=== PATIENT | female | born 1985 | race Caucasian/White ===

== ENCOUNTER 2019-09-19 05:08 | Emergency (ER) | payer SELFPAY ==
--- OUTSIDE RECORDS SUMMARY | 2019-09-19 05:10 | XMS REPORT ---
:1985 [facility] Address [address] [place] [address] Dr. Mcduffie [address] [place] [id number] Care Team Providers Name Role Phone Unavailable Unavailable Unavailable Problems This patient has no known problems. Allergies, Adverse Reactions, Alerts This patient has no known allergies or adverse reactions. Medications This patient has no known medications.
--- NOTE | 2019-09-19 05:23 | ER ---
Nurse's Notes [facility] Name: Tori Espinoza Age: 34 yrs Sex: Female : 1985 Arrival Date: 09/19/2019 Time: 05:11 Bed 15 Private MD: Diagnosis: Allergic contact dermatitis-Poison Nasreen Presentation: 09/18 05:13 Chief complaint: Patient states: I have rashes all over my body started yesterday. 2 rr5 days ago I do yard work then it started this rashes. denies . 05:13 Coronavirus screen: Patient denies fever greater than 100.4F, cough, shortness of rr5 breath, or difficulty breathing. Proceed with normal triage process. Onset of symptoms was September 18, 2019. 05:13 Method Of Arrival: Ambulatory rr5 05:13 Acuity: RICHARD 4 rr5 05:14 Ebola Screen: No symptoms or risks identified at this time. Initial Sepsis Screen: Does mg2 the patient meet any 2 criteria? No. Patient's initial sepsis screen is negative. Does the patient have a suspected source of infection? No. Patient's initial sepsis screen is negative. Risk Assessment: Do you want to hurt yourself or someone else? Patient reports no desire to harm self or others. 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 - Social history:: Smoking status: unknown Patient uses alcohol, occasionally. Patient/guardian denies using street drugs. - Family history:: not pertinent. - Hospitalizations: : No recent hospitalization is reported. Screenin:14 Abuse screen: Denies threats or abuse. Denies injuries from another. Nutritional mg2 screening: No deficits noted. Tuberculosis screening: No symptoms or risk factors identified. Fall Risk None identified. Assessment: 05:13 General: Appears in no apparent distress. uncomfortable, Behavior is calm, cooperative, rr5 appropriate for age. 05:13 Pain: Denies pain. Neuro: Level of Consciousness is awake, alert, obeys commands, rr5 Oriented to person, place, time, situation. Cardiovascular: Capillary refill < 3 seconds Patient's skin is warm and dry. Respiratory: Airway is patent Respiratory effort is even, unlabored, Respiratory pattern is regular, symmetrical, Denies shortness of breath. GI: No signs and/or symptoms were reported involving the gastrointestinal system. : No signs and/or symptoms were reported regarding the genitourinary system. EENT: No signs and/or symptoms were reported regarding the EENT system. Derm: Rash noted that is red, raised, urticaria, on chest, right arm, left arm and neck Reports itching. Musculoskeletal: Circulation, motion, and sensation intact. Capillary refill < 3 seconds. Vital Signs: 05:13 BP 132 / 89; Pulse 79; Resp 18; Temp 97.7(TE); Pulse Ox 100% on R/A; mg2 05:13 Weight 104.33 kg; Height 5 ft. 11 in. (180.34 cm); Pain 0/10; rr5 05:40 BP 113 / 75; Pulse 70; Resp 17; Pulse Ox 98% on R/A; rr5 05:13 Body Mass Index 32.08 (104.33 kg, 180.34 cm) rr5 ED Course: 05:11 Patient arrived in ED. ag3 05:11 Maykel Lee, RN is Primary Nurse. rr5 05:13 Irving Brower MD is Attending Physician. rn 05:13 Arm band placed on. mg2 05:14 Patient has correct armband on for positive identification. Bed in low position. rr5 05:20 Triage completed. rr5 05:30 No provider procedures requiring assistance completed. Patient did not have IV access rr5 during this emergency room visit. Administered Medications: 05:23 Drug: SOLU-Medrol 125 mg Route: IM; Site: left gluteus; mg2 05:43 Follow up: Response: No adverse reaction rr5 Outcome: 05:22 Discharge ordered by . rn 05:41 Discharged to home ambulatory. rr5 05:41 Condition: stable 05:41 Discharge instructions given to patient, Instructed on discharge instructions, follow up and referral plans. medication usage, Demonstrated understanding of instructions, follow-up care, medications, Prescriptions given X 1. 05:44 Patient left the ED. rr5 Signatures: Irving Brower MD MD rn Gardose, Michele, RN RN mg2 Gomez, Alice ag3 Maykel Lee, DENILSON RN rr5
--- NOTE | 2019-09-19 05:23 | EDPHYS ---
Physician Documentation [facility] Name: Tori Espinoza Age: 34 yrs Sex: Female : 1985 Arrival Date: 09/19/2019 Time: 05:11 Bed 15 Private MD: ED Physician Irving Brower HPI: 09/18 05:18 This 34 yrs old Female presents to ER via Unassigned with complaints of Rash. rn 05:18 The patient's rash thought to be caused by Contact allergy. The rash is located on the rn body diffusely. The rash can be described as erythematous, urticarial, vesicular. Onset: The symptoms/episode began/occurred 2 day(s) ago. Severity of symptoms: At their worst the symptoms were moderate in the emergency department the symptoms are unchanged. The patient has experienced similar episodes in the past. Reports thinks has "poison something", was doing yard work, has happened before, reports getting worse. + itching and trying topical treatments. . 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 - Social history:: Smoking status: unknown Patient uses alcohol, occasionally. Patient/guardian denies using street drugs. - Family history:: not pertinent. - Hospitalizations: : No recent hospitalization is reported. ROS: 05:18 Constitutional: Negative for fever, chills, and weight loss, Eyes: Negative for injury, rn pain, redness, and discharge, Cardiovascular: Negative for chest pain, palpitations, and edema, Respiratory: Negative for shortness of breath, cough, wheezing, and pleuritic chest pain, MS/Extremity: Negative for injury and deformity, Skin: + itchy rash diffusely Exam: 05:18 Constitutional: This is a well developed, well nourished patient who is awake, alert, rn and in no acute distress. Eyes: No eye involvement ENT: No oral lesions Skin: + erythematous and pustular lesions on torso/neck/all 4 extremities, no skin sloughing. Vital Signs: 05:13 BP 132 / 89; Pulse 79; Resp 18; Temp 97.7(TE); Pulse Ox 100% on R/A; mg2 05:13 Weight 104.33 kg; Height 5 ft. 11 in. (180.34 cm); Pain 0/10; rr5 05:40 BP 113 / 75; Pulse 70; Resp 17; Pulse Ox 98% on R/A; rr5 05:13 Body Mass Index 32.08 (104.33 kg, 180.34 cm) rr5 MDM: 05:13 Patient medically screened. rn 05:18 Differential diagnosis: allergic reaction, poison nasreen. Data reviewed: vital signs, rn nurses notes, and as a result, I will discharge patient. Counseling: I had a detailed discussion with the patient and/or guardian regarding: the historical points, exam findings, and any diagnostic results supporting the discharge/admit diagnosis, the need for outpatient follow up, to return to the emergency department if symptoms worsen or persist or if there are any questions or concerns that arise at home. Special discussion: I discussed with the patient/guardian in detail that at this point there is no indication for admission to the hospital. It is understood, however, that if the symptoms persist or worsen the patient needs to return immediately for re-evaluation. Administered Medications: 05:23 Drug: SOLU-Medrol 125 mg Route: IM; Site: left gluteus; mg2 05:43 Follow up: Response: No adverse reaction rr5 Disposition: 09/19/19 05:22 Discharged to Home. Impression: Allergic contact dermatitis - Poison Nasreen. - Condition is Stable. - Discharge Instructions: Contact Dermatitis, Poison Nasreen Dermatitis, Poison Chelsea Dermatitis. - Prescriptions for Prednisone 20 mg Oral Tablet - take 1 tablet by ORAL route as directed for 10 days Take 3 tablets once daily for 5 days, followed by 2 tablets once daily for 3 days, followed by 1 tablet once daily for 2 days, for total of 10 days.; 23 tablet. - Medication Reconciliation Form, Thank You Letter, Antibiotic Education, Prescription Opioid Use form. - Follow up: Private Physician; When: As needed; Reason: Recheck today's complaints, Re-evaluation by your physician. - Problem is new. - Symptoms are unchanged. Signatures: Irving Brower MD MD rn Gardose, Michele, RN RN mg2 Lee, Maykel, RN RN rr5 Corrections: (The following items were deleted from the chart) 05:44 05:22 09/19/2019 05:22 Discharged to Home. Impression: Allergic contact dermatitis - rr5 Poison Nasreen. Condition is Stable. Forms are Medication Reconciliation Form, Thank You Letter, Antibiotic Education, Prescription Opioid Use. Follow up: Private Physician; When: As needed; Reason: Recheck today's complaints, Re-evaluation by your physician. Problem is new. Symptoms are unchanged. rn
[2019-09-19] MEDS ORDERED: METHYLPREDNISOLONE 125 MG INJ ONE (05:24)
[2019-09-19 05:57] VITALS: TEMP 97.7
[2019-09-19 05:59] VITALS: BP 113/75; O2SAT 98
== END 2019-09-19 05:44 | disposition home or self-care (01) ==
LOC: ER 05:08
DX: L23.7 Allergic contact dermatitis due to plants, except food (principal)
CPT/HCPCS: 96372; 99283; J2930

== ENCOUNTER 2024-05-03 12:43 | Emergency (ER) | payer OTHER, SELFPAY ==
--- OUTSIDE RECORDS SUMMARY | 2024-05-03 12:46 | XMS REPORT | Continuity of Care Document ---
Author Name Unknown Address [address] [facility] [address] [place] [address] [facility] thconnect Address [address] [facility] [address] [place] [address] Care Team Providers Care Radio Division Captain Name Role Phone Vane Ling Primary Care Physician NurseHenrry Rgv Cprit Obgyn Attending Clini gasper Unavailable Kate Rahman Attending Clinician + KATE MINA Attending Clinician Unavail SADE Barraza Attending Clinician Unavailable Doctor Unassigned, [place] Attending Clinician U navailJORDON Baumann Attending Clinician Unavailable EbhiJordon Lynn Attending Clinician [phone] Unknown, Attending Attending Clinician UnavailSade Chacon NP Attending Clinician [phone] ProviderShell Temp Attending Clinician Beverly MARVIN Robison Attending Clinician Unavailab WOJCIECH Wilson Attending Clinician Unavailable Wojciech Balderas Attending Clinician [phone] Vane Hernandez Attending Clinician [phone] VANE SUH Attending Clinician UnavailMarvin Triana Attending Clinician [phone] CASTILLO BECKETT Attending Clinician Unavail edgar Nurse, Gustavo Pob Immunization Attending Clinician Unavailable Castillo Beckett DO Attending Clinician [phone] Payers Payer Name Policy Type Policy Number Effective Date Expirati on Date Source [facility] [id number] 2017 00:00:00 Problems Condition Name Condition Details Condition Category Status Onset Date Resolution Date Last Treatment Date Treating Clinician Comments Source Need for HPV vaccinatio n Need for HPV vaccinatio n Disease Active 3-04 00:00: 00 [facility] BMI 33.0-33.9, adult BMI 33.0-33.9, adult Disease Active 5-19 00:00: 00 [facility] History of tobacco use History of tobacco use Disease Active 2018-06 00:00: 00 Overview: Formattin g of this note might be different from the original. Reports she quit 5 year ago [facility] Screening examinatio n for STD (sexually transmitte d disease) Screening examinatio n for STD (sexually transmitte d disease) Disease Active 03-21 00:00: 00 [facility] History of bilateral tubal ligation History of bilateral tubal ligation Disease Active 03-21 00:00: 00 [facility] Vaginal discharge Vaginal discharge Disease Active 03-21 00:00: 00 [facility] Class 1 obesity due to excess calories with body mass index (BMI) of 33.0 to 33.9 in adult, unspecifie d whether serious comorbidit y present Class 1 obesity due to excess calories with body mass index (BMI) of 33.0 to 33.9 in adult, unspecifie d whether serious comorbidit y present Disease Active 03-21 00:00: 00 [facility] Class 1 obesity due to excess calories with body mass index (BMI) of 33.0 to 33.9 in adult, unspecifie d whether serious comorbidit y present Class 1 obesity due to excess calories with body mass index (BMI) of 33.0 to 33.9 in adult, unspecifie d whether serious comorbidit y present Disease Active 03-21 00:00: 00 [facility] Allergies, Adverse Reactions, Alerts Allergy Name Allergy Type Status Severity Reaction(s) Onset Date Inactive Date Treating Clinician Comments Source NO KNOWN ALLERGIE S Drug Class Active [facility] Social History Social Habit Start Date Stop Date Quantity Comments Source Gender identity [facility] History SDOH Alcohol Frequency [facility] History SD[facility] Alcohol Binge [facility] Alcohol intake 2023-02-22 00:00:00 2023-02-22 00:00:00 Current drinker of alcohol (finding) [facility] Tobacco use and exposure 2023-02-10 00:00:00 2023-02-10 00:00:00 User of smokeless tobacco [facility] Alcohol Comment 2023-02-10 00:00:00 2023-02-10 00:00:00 socially [facility] History of Social function 2023-02-10 00:00:00 2023-02-10 00:00:00 [facility] Tobacco Comment 2023-02-10 00:00:00 2023-02-10 00:00:00 Daily vaping x 2 months [facility] Exposure to SARS-CoV-2 (event) 2022-05-30 00:00:00 2022-06-09 09:45:00 Not sure [facility] Sex Assigned At 1985 00:00:00 1985 00:00:00 [facility] Smoking Status Start Date Stop Date Source Never smoked tobacco [facility] Medications Ordered Medication Name Filled Medication Name Start Date Stop Date Current Medication? Ordering Clinician Indication Dosage Frequency Signature (SIG) Comments Components Source metronidazo le 500 mg tablet 6-12 00:00: 00 Yes 1mg Jeff Rolon fluconazole 150 mg tablet 5-29 00:00: 00 Yes 1mg Jeff Rolon metronidazo le 500 mg tablet 4- 00:00: 00 Yes 1mg Jeff Rolon METRONIDAZO LE 500 MG 2022-06 2-27 00:00: 00 Yes Jeff Rolon TAKE 1 TABLET EVERY 12 HOURS DAILY. 2022-06 1- 00:00: 00 09-25 00:00 :00 No [id number] Jeff Rolon TAKE 1 TABLET TWICE DAILY UNTIL FINISHED. 2022-06 00:00: 00 09-25 00:00 :00 No 500 Jeff Rolon TAKE 1 CAPSULE TWICE DAILY. 2022-06 00:00: 00 09-25 00:00 :00 No 100 Jeff Rolon metroNIDAZO LE 500 mg tablet 2022-06 00:00: 00 Yes [id number] 500mg Take 1 tablet by mouth in the morning and 1 tablet in the evening. [facility] TAKE ONE (1) TABLET(S) BY MOUTH EVERY MORNING AND EVENING. 2022-06 00:00: 00 09-25 00:00 :00 No Jeff Rolon buPROPion XL (WELLBUTRIN XL) 150 mg 24 hr tablet 2022-06 00:00: 00 Yes [id number] 150mg Take 1 tablet by mouth in the morning. [facility] TAKE ONE (1) TABLET(S) BY MOUTH IN THE MORNING. 2022-06 00:00: 00 Yes Jeff Rolon dexamethaso ne (DECADRON) injection 10 mg 02-22 17:45: 00 02-22 16:49 :00 No [id number] 10mg [facility] TAKE ONE (1) TABLET(S) BY MOUTH EVERY 72 (SEVENTY-TW O) HOURS FOR 2 DOSES. 02-17 00:00: 00 Yes Jeff Rolon fluconazole 150 mg tablet 02-17 00:00: 00 02-22 04:59 :00 No [id number] 150mg Take 1 tablet by mouth every 72 (seventy-t wo) hours for 2 doses. [facility] buPROPion XL 150 mg 24 hr tablet 02-10 00:00: 00 03-13 04:59 :00 No [id number] 150mg Take 1 tablet by mouth in the morning for 30 days. [facility] phenazopyri dine 200 mg tablet 2021-0618 00:00: 00 Yes [id number] 200mg Take 1 tablet by mouth in the morning and 1 tablet at noon and 1 tablet in the evening. [facility] TAKE 1 CAPSULE BY MOUTH EVERY 12 HOURS FOR 7 DAYS 2021-06 00:00: 00 Yes Jeff Rolon TAKE 1 TABLET BY MOUTH IN THE MORNING, TAKE 1 TABLET AT NOON, AND TAKE 1 TABLET IN THE EVENING 2021-06 00:00: 00 Yes Jeff Rolon cefdinir 300 mg capsule 2021-06 00:00: 00 06-17 05:59 :00 No [id number] 300mg Take 1 capsule by mouth every 12 (twelve) hours for 7 days. [facility] No known medications 2021-06 0 14:00: 08 No No known medication s [facility] TAKE 1 TABLET BY MOUTH TWICE DAILY IN THE MORNING AND IN THE EVENING - DO ALL THIS FOR 3 DAYS 2021-06 00:00: 00 Yes Jeff Yvrose Rolon sulfamethox azole-trime thoprim (BACTRIM DS) 800-160 mg per tablet 2021-06 00:00: 00 03-30 04:59 :00 No [id number] 1{tbl} Take 1 tablet by mouth in the morning and 1 tablet in the evening. Do all this for 3 days. [facility] Dose Unknown 03-04 00:00: 00 09-25 00:00 :00 No Jeff Rolon TAKE 1 CAPSULE TWICE DAILY. 02-28 00:00: 00 09-25 00:00 :00 No Jeff Yvrose Rolno No known medications 11-08 10:21: 15 No [facility] Immunizations Ordered Immunization Name Filled Immunization Name Date Status Comments Source HPV9 2023-02-10 00:00:00 Completed [facility] HPV9 2023-02-10 00:00:00 Completed [facility] HPV9 2023-02-10 00:00:00 Completed [facility] HPV9 2023-02-10 00:00:00 Completed [facility] HPV9 2023-02-10 00:00:00 Completed [facility] HPV9 2023-02-10 00:00:00 Completed [facility] Influenza Virus Vaccine Quad .5 mL IM 6+ MO 2022-03-26 00:00:00 Completed [facility] Influenza Virus Vaccine Quad .5 mL IM 6+ MO 2022-03-26 00:00:00 Completed [facility] Influenza Virus Vaccine Quad .5 mL IM 6+ MO 2022-03-26 00:00:00 Completed [facility] Influenza Virus Vaccine Quad .5 mL IM 6+ MO 2022-03-26 00:00:00 Completed [facility] Influenza Virus Vaccine Quad .5 mL IM 6+ MO 2022-03-26 00:00:00 Completed [facility] Influenza Virus Vaccine Quad .5 mL IM 6+ MO 2022-03-26 00:00:00 Completed [facility] Influenza Virus Vaccine Quad .5 mL IM 6+ MO (FLUZONE/FLULAVAL/F LUARIX) 2022-03-26 00:00:00 Completed [facility] Influenza Virus Vaccine Quad .5 mL IM 6+ MO (FLUZONE/FLULAVAL/F LUARIX) 2022-03-26 00:00:00 Completed [facility] Influenza Virus Vaccine Quad .5 mL IM 6+ MO (FLUZONE/FLULAVAL/F LUARIX) 2022-03-26 00:00:00 Completed [facility] SARS-COV-2 COVID-19 PFIZER VACCINE 2021-05-25 00:00:00 Completed [facility] SARS-COV-2 COVID-19 PFIZER VACCINE 2021-05-25 00:00:00 Completed [facility] SARS-COV-2 COVID-19 PFIZER VACCINE 2021-05-25 00:00:00 Completed [facility] SARS-COV-2 COVID-19 PFIZER VACCINE 2021-05-25 00:00:00 Completed [facility] SARS-COV-2 COVID-19 PFIZER VACCINE 2021-05-25 00:00:00 Completed [facility] SARS-COV-2 COVID-19 PFIZER VACCINE 2021-05-25 00:00:00 Completed [facility] SARS-COV-2 COVID-19 PFIZER VACCINE 2021-05-25 00:00:00 Completed [facility] SARS-COV-2 COVID-19 PFIZER VACCINE 2021-05-25 00:00:00 Completed [facility] SARS-COV-2 COVID-19 PFIZER VACCINE 2021-05-25 00:00:00 Completed [facility] SARS-COV-2 COVID-19 PFIZER VACCINE 2021-05-25 00:00:00 Completed [facility] SARS-COV-2 COVID-19 PFIZER VACCINE 2020-11-08 00:00:00 Completed [facility] SARS-COV-2 COVID-19 PFIZER VACCINE 2020-11-08 00:00:00 Completed [facility] SARS-COV-2 COVID-19 PFIZER VACCINE 2020-11-08 00:00:00 Completed [facility] SARS-COV-2 COVID-19 PFIZER VACCINE 2020-11-08 00:00:00 Completed [facility] SARS-COV-2 COVID-19 PFIZER VACCINE 2020-11-08 00:00:00 Completed [facility] SARS-COV-2 COVID-19 PFIZER VACCINE 2020-11-08 00:00:00 Completed [facility] SARS-COV-2 COVID-19 PFIZER VACCINE 2020-11-08 00:00:00 Completed [facility] SARS-COV-2 COVID-19 PFIZER VACCINE 2020-11-08 00:00:00 Completed [facility] SARS-COV-2 COVID-19 PFIZER VACCINE 2020-11-08 00:00:00 Completed [facility] SARS-COV-2 COVID-19 PFIZER VACCINE 2020-11-08 00:00:00 Completed [facility] SARS-COV-2 COVID-19 PFIZER VACCINE 2020-10-19 00:00:00 Completed [facility] SARS-COV-2 COVID-19 PFIZER VACCINE 2020-10-19 00:00:00 Completed [facility] SARS-COV-2 COVID-19 PFIZER VACCINE 2020-10-19 00:00:00 Completed [facility] SARS-COV-2 COVID-19 PFIZER VACCINE 2020-10-19 00:00:00 Completed [facility] SARS-COV-2 COVID-19 PFIZER VACCINE 2020-10-19 00:00:00 Completed [facility] SARS-COV-2 COVID-19 PFIZER VACCINE 2020-10-19 00:00:00 Completed [facility] SARS-COV-2 COVID-19 PFIZER VACCINE 2020-10-19 00:00:00 Completed [facility] SARS-COV-2 COVID-19 PFIZER VACCINE 2020-10-19 00:00:00 Completed [facility] SARS-COV-2 COVID-19 PFIZER VACCINE 2020-10-19 00:00:00 Completed [facility] SARS-COV-2 COVID-19 PFIZER VACCINE 2020-10-19 00:00:00 Completed [facility] Influenza Virus Vaccine Quad .5 mL IM 6+ MO 2020-03-09 00:00:00 Completed [facility] Influenza Virus Vaccine Quad .5 mL IM 6+ MO 2020-03-09 00:00:00 Completed [facility] Influenza Virus Vaccine Quad .5 mL IM 6+ MO 2020-03-09 00:00:00 Completed [facility] Influenza Virus Vaccine Quad .5 mL IM 6+ MO (FLUZONE/FLULAVAL/F LUARIX) 2020-03-09 00:00:00 Completed [facility] Influenza Virus Vaccine Quad .5 mL IM 6+ MO (FLUZONE/FLULAVAL/F LUARIX) 2020-03-09 00:00:00 Completed [facility] Influenza Virus Vaccine Quad .5 mL IM 6+ MO (FLUZONE/FLULAVAL/F LUARIX) 2020-03-09 00:00:00 Completed [facility] Influenza Virus Vaccine 2019-04-07 00:00:00 Completed [facility] Influenza Virus Vaccine 2019-04-07 00:00:00 Completed [facility] Influenza Virus Vaccine 2019-04-07 00:00:00 Completed [facility] Influenza Virus Vaccine 2019-04-07 00:00:00 Completed [facility] Influenza Virus Vaccine 2019-04-07 00:00:00 Completed [facility] Influenza Virus Vaccine 2019-04-07 00:00:00 Completed [facility] Influenza Virus Vaccine 2019-04-07 00:00:00 Completed [facility] Influenza Virus Vaccine 2019-04-07 00:00:00 Completed [facility] Influenza Virus Vaccine 2019-04-07 00:00:00 Completed [facility] Influenza Virus Vaccine 2019-04-07 00:00:00 Completed [facility] TDAP 2017-03-21 00:00:00 Completed [facility] TDAP 2017-03-21 00:00:00 Completed [facility] TDAP 2017-03-21 00:00:00 Completed [facility] TDAP 2017-03-21 00:00:00 Completed [facility] TDAP 2017-03-21 00:00:00 Completed [facility] TDAP 2017-03-21 00:00:00 Completed [facility] TDAP 2017-03-21 00:00:00 Completed [facility] TDAP 2017-03-21 00:00:00 Completed [facility] TDAP 2017-03-21 00:00:00 Completed [facility] TDAP 2017-03-21 00:00:00 Completed [facility] DTP 1988-09-20 00:00:00 Completed [facility] Poliovirus, Live, Oral, Trivalent 1988-09-20 00:00:00 Completed [facility] DTP 1988-09-20 00:00:00 Completed [facility] Poliovirus, Live, Oral, Trivalent 1988-09-20 00:00:00 Completed [facility] DTP 1988-09-20 00:00:00 Completed [facility] Poliovirus, Live, Oral, Trivalent 1988-09-20 00:00:00 Completed [facility] DTP 1988-09-20 00:00:00 Completed [facility] Poliovirus, Live, Oral, Trivalent 1988-09-20 00:00:00 Completed [facility] DTP 1988-09-20 00:00:00 Completed [facility] Poliovirus, Live, Oral, Trivalent 1988-09-20 00:00:00 Completed [facility] DTP 1988-09-20 00:00:00 Completed [facility] Poliovirus, Live, Oral, Trivalent 1988-09-20 00:00:00 Completed [facility] DTP 1986-01-07 00:00:00 Completed [facility] Poliovirus, Live, Oral, Trivalent 1986-01-07 00:00:00 Completed [facility] DTP 1986-01-07 00:00:00 Completed [facility] Poliovirus, Live, Oral, Trivalent 1986-01-07 00:00:00 Completed [facility] DTP 1986-01-07 00:00:00 Completed [facility] Poliovirus, Live, Oral, Trivalent 1986-01-07 00:00:00 Completed [facility] DTP 1986-01-07 00:00:00 Completed [facility] Poliovirus, Live, Oral, Trivalent 1986-01-07 00:00:00 Completed [facility] DTP 1986-01-07 00:00:00 Completed [facility] Poliovirus, Live, Oral, Trivalent 1986-01-07 00:00:00 Completed [facility] DTP 1986-01-07 00:00:00 Completed [facility] Poliovirus, Live, Oral, Trivalent 1986-01-07 00:00:00 Completed [facility] DTP 1985-07-30 00:00:00 Completed [facility] Poliovirus, Live, Oral, Trivalent 1985-07-30 00:00:00 Completed [facility] DTP 1985-07-30 00:00:00 Completed [facility] Poliovirus, Live, Oral, Trivalent 1985-07-30 00:00:00 Completed [facility] DTP 1985-07-30 00:00:00 Completed [facility] Poliovirus, Live, Oral, Trivalent 1985-07-30 00:00:00 Completed [facility] DTP 1985-07-30 00:00:00 Completed [facility] Poliovirus, Live, Oral, Trivalent 1985-07-30 00:00:00 Completed [facility] DTP 1985-07-30 00:00:00 Completed [facility] Poliovirus, Live, Oral, Trivalent 1985-07-30 00:00:00 Completed [facility] DTP 1985-07-30 00:00:00 Completed [facility] Poliovirus, Live, Oral, Trivalent 1985-07-30 00:00:00 Completed [facility] DTP 1985-01-28 00:00:00 Completed [facility] Poliovirus, Live, Oral, Trivalent 1985-01-28 00:00:00 Completed [facility] DTP 1985-01-28 00:00:00 Completed [facility] Poliovirus, Live, Oral, Trivalent 1985-01-28 00:00:00 Completed [facility] DTP 1985-01-28 00:00:00 Completed [facility] Poliovirus, Live, Oral, Trivalent 1985-01-28 00:00:00 Completed [facility] DTP 1985-01-28 00:00:00 Completed [facility] Poliovirus, Live, Oral, Trivalent 1985-01-28 00:00:00 Completed [facility] DTP 1985-01-28 00:00:00 Completed [facility] Poliovirus, Live, Oral, Trivalent 1985-01-28 00:00:00 Completed [facility] DTP 1985-01-28 00:00:00 Completed [facility] Poliovirus, Live, Oral, Trivalent 1985-01-28 00:00:00 Completed [facility] TDAP Unknown Completed [facility] Influenza Virus Vaccine Unknown Completed [facility] SARS-COV-2 COVID-19 PFIZER VACCINE Unknown Completed [facility] Influenza Virus Vaccine Quad .5 mL IM 6+ MO (FLUZONE/FLULAVAL/F LUARIX) Unknown Completed [facility] DTP Unknown Completed [facility] Poliovirus, Live, Oral, Trivalent Unknown Completed [facility] HPV9 Unknown Completed [facility] TDAP Unknown Completed [facility] Influenza Virus Vaccine Unknown Completed [facility] SARS-COV-2 COVID-19 PFIZER VACCINE Unknown Completed [facility] Influenza Virus Vaccine Quad .5 mL IM 6+ MO (FLUZONE/FLULAVAL/F LUARIX) Unknown Completed [facility] DTP Unknown Completed [facility] Poliovirus, Live, Oral, Trivalent Unknown Completed [facility] HPV9 Unknown Completed [facility] TDAP Unknown Completed [facility] Influenza Virus Vaccine Unknown Completed [facility] SARS-COV-2 COVID-19 PFIZER VACCINE Unknown Completed [facility] Influenza Virus Vaccine Quad .5 mL IM 6+ MO (FLUZONE/FLULAVAL/F LUARIX) Unknown Completed [facility] DTP Unknown Completed [facility] Poliovirus, Live, Oral, Trivalent Unknown Completed [facility] HPV9 Unknown Completed [facility] TDAP Unknown Completed [facility] Influenza Virus Vaccine Unknown Completed [facility] SARS-COV-2 COVID-19 PFIZER VACCINE Unknown Completed [facility] Influenza Virus Vaccine Quad .5 mL IM 6+ MO (FLUZONE/FLULAVAL/F LUARIX) Unknown Completed [facility] DTP Unknown Completed [facility] Poliovirus, Live, Oral, Trivalent Unknown Completed [facility] HPV9 Unknown Completed [facility] TDAP Unknown Completed [facility] Influenza Virus Vaccine Unknown Completed [facility] SARS-COV-2 COVID-19 PFIZER VACCINE Unknown Completed [facility] Influenza Virus Vaccine Quad .5 mL IM 6+ MO (FLUZONE/FLULAVAL/F LUARIX) Unknown Completed [facility] DTP Unknown Completed [facility] Poliovirus, Live, Oral, Trivalent Unknown Completed [facility] HPV9 Unknown Completed [facility] Vital Signs Vital Name Observation Time Observation Value Comments S ource Body temperature 2023-08-25 19:52:00 36.67 Paola [facility] Systolic blood pressure 2023-04-02 14:41:00 134 mm[Hg] [facility] Diastolic blood pressure 2023-04-02 14:41:00 87 mm[Hg] [facility] Heart rate 2023-04-02 14:41:00 70 /min [facility] Body temperature 2023-04-02 14:41:00 36.11 Paola [facility] Respiratory rate 2023-04-02 14:41:00 18 /min [facility] Body height 2023-04-02 14:41:00 180.3 cm [facility] Body weight 2023-04-02 14:41:00 73.029 kg [facility] BMI 2023-04-02 14:41:00 22.45 kg/m2 [facility] Systolic blood pressure 2023-03-17 19:16:00 131 mm[Hg] [facility] Diastolic blood pressure 2023-03-17 19:16:00 76 mm[Hg] [facility] Heart rate 2023-03-17 19:16:00 79 /min [facility] Body temperature 2023-03-17 19:16:00 36.28 Paola [facility] Respiratory rate 2023-03-17 19:16:00 18 /min [facility] Body height 2023-03-17 19:16:00 180.3 cm [facility] Body weight 2023-03-17 19:16:00 75.569 kg [facility] BMI 2023-03-17 19:16:00 23.24 kg/m2 [facility] Systolic blood pressure 2023-02-22 16:25:00 115 mm[Hg] [facility] Diastolic blood pressure 2023-02-22 16:25:00 74 mm[Hg] [facility] Heart rate 2023-02-22 16:25:00 97 /min [facility] Body temperature 2023-02-22 16:25:00 36.83 Paola [facility] Body height 2023-02-22 16:25:00 180.3 cm [facility] Body weight 2023-02-22 16:25:00 75.433 kg [facility] BMI 2023-02-22 16:25:00 23.19 kg/m2 [facility] Oxygen saturation in Arterial blood by Pulse oximetry 2023-02-22 16:25:00 96 /min [facility] Systolic blood pressure 2023-02-10 13:40:00 121 mm[Hg] [facility] Diastolic blood pressure 2023-02-10 13:40:00 82 mm[Hg] [facility] Heart rate 2023-02-10 13:40:00 88 /min [facility] Body temperature 2023-02-10 13:40:00 36.61 Paola [facility] Respiratory rate 2023-02-10 13:40:00 18 /min [facility] Body height 2023-02-10 13:40:00 180.3 cm [facility] Body weight 2023-02-10 13:40:00 76.374 kg [facility] BMI 2023-02-10 13:40:00 23.48 kg/m2 [facility] Systolic blood pressure 2022-06-09 15:46:00 127 mm[Hg] [facility] Diastolic blood pressure 2022-06-09 15:46:00 83 mm[Hg] [facility] Heart rate 2022-06-09 15:46:00 79 /min [facility] Body temperature 2022-06-09 15:46:00 36.94 Paola [facility] Respiratory rate 2022-06-09 15:46:00 14 /min [facility] Body height 2022-06-09 15:46:00 180.3 cm [facility] Body weight 2022-06-09 15:46:00 95.301 kg [facility] BMI 2022-06-09 15:46:00 29.30 kg/m2 [facility] Oxygen saturation in Arterial blood by Pulse oximetry 2022-06-09 15:46:00 98 /min [facility] Systolic blood pressure 2022-03-26 18:48:00 126 mm[Hg] [facility] Diastolic blood pressure 2022-03-26 18:48:00 86 mm[Hg] [facility] Heart rate 2022-03-26 18:48:00 73 /min [facility] Body temperature 2022-03-26 18:48:00 36.56 Paola [facility] Respiratory rate 2022-03-26 18:48:00 18 /min [facility] Body height 2022-03-26 18:48:00 180.3 cm [facility] Body weight 2022-03-26 18:48:00 100.88 kg [facility] BMI 2022-03-26 18:48:00 31.02 kg/m2 [facility] Systolic blood pressure 2021-11-08 15:12:00 118 mm[Hg] [facility] Diastolic blood pressure 2021-11-08 15:12:00 79 mm[Hg] [facility] Heart rate 2021-11-08 15:12:00 89 /min [facility] Body temperature 2021-11-08 15:12:00 36.72 Paola [facility] Respiratory rate 2021-11-08 15:12:00 16 /min [facility] Body height 2021-11-08 15:12:00 180.3 cm [facility] Body weight 2021-11-08 15:12:00 109.362 kg [facility] BMI 2021-11-08 15:12:00 33.63 kg/m2 [facility] Body Temperature 2023-12-03 16:48:00 98.10 degrees Jeff F Gonzales Heart Rate 2023-12-03 16:48:00 73.00 /min Lenore en F Gonzales Respiratory Rate 2023-12-03 16:48:00 19.00 /min Jeff F Gonzales BP Systolic 2023-12-03 16:48:00 133 mm[Hg] Step hen F Gonzales BP Diastolic 2023-12-03 16:48:00 80 mm[Hg] John phen F Gonzales Weight Measured 2023-12-03 16:48:00 174.40 pounds Jeff F Gonzales Height Measured 2023-12-03 16:48:00 68.00 inches Jeff F Gonzales BP Systolic 2023-11-19 14:26:00 133 mm[Hg] Step hen F Gonzales BP Diastolic 2023-11-19 14:26:00 64 mm[Hg] John phen F Gonzales Weight Measured 2023-11-19 14:26:00 177.40 pounds Jeff F Gonzales Height Measured 2023-11-19 14:26:00 68.00 inches Jeff F Gonzales Body Temperature 2023-11-19 14:26:00 98.30 degrees Jeff F Gonzales Heart Rate 2023-11-19 14:26:00 72.00 /min Lenore en F Gonzales Respiratory Rate 2023-11-19 14:26:00 19.00 /min Jeff F Gonzales BP Systolic 2023-09-22 13:54:00 130 mm[Hg] Step hen F Gonzales BP Diastolic 2023-09-22 13:54:00 76 mm[Hg] John phen F Gonzales Weight Measured 2023-09-22 13:54:00 178.00 pounds Jeff F Gonzales Height Measured 2023-09-22 13:54:00 68.00 inches Jeff F Gonzales Body Temperature 2023-09-22 13:54:00 98.20 degrees Jeff F Gonzales Heart Rate 2023-09-22 13:54:00 71.00 /min Lenore en F Gonzales Respiratory Rate 2023-09-22 13:54:00 18.00 /min Jeff F Gonzales BP Systolic 2023-04-28 15:35:00 125 mm[Hg] Step hen F Gonzales BP Diastolic 2023-04-28 15:35:00 74 mm[Hg] John phen F Gonzales Weight Measured 2023-04-28 15:35:00 166.40 pounds Jeff F Gonzales Height Measured 2023-04-28 15:35:00 68.00 inches Jeff F Gonzales Body Temperature 2023-04-28 15:35:00 97.40 degrees Jeff F Gonzales Heart Rate 2023-04-28 15:35:00 96.00 /min Lenore en F Gonzales Respiratory Rate 2023-04-28 15:35:00 Jeff F Gonzales BP Systolic 2022-02-25 16:00:00 Step hen F Gonzales BP Diastolic 2022-02-25 16:00:00 John phen F Gonzales Weight Measured 2022-02-25 16:00:00 Jeff F Gonzales Height Measured 2022-02-25 16:00:00 Jeff F Gonzales Body Temperature 2022-02-25 16:00:00 Jeff F Gonzales Heart Rate 2022-02-25 16:00:00 Lenore en F Gonzales Respiratory Rate 2022-02-25 16:00:00 Jeff F Gonzales BP Systolic 2022-02-25 15:49:00 123 mm[Hg] Step hen F Gonzales BP Diastolic 2022-02-25 15:49:00 79 mm[Hg] John phen F Gonzales Weight Measured 2022-02-25 15:49:00 227.80 pounds Jeff F Gonzales Height Measured 2022-02-25 15:49:00 71.00 inches Jeff F Gonzales Body Temperature 2022-02-25 15:49:00 97.50 degrees Jeff F Gonzales Heart Rate 2022-02-25 15:49:00 Lenore Rolon Respiratory Rate 2022-02-25 15:49:00 Jeff Rolon Procedures Procedure Date / Time Performed Performing Clinicia n Source GARDASIL 9 (HPV 9V) VACCINE 2023-08-25 19:52:34 Kate Mina [facility] GARDASIL 9 (HPV 9V) VACCINE 2023-03-17 19:29:53 Kate Mina [facility] ASSIGNMENT OF BENEFITS 2023-02-26 14:35:03 Docto r Unassigned, [place] [facility] POCT SARS-COV-2 ANTIGEN (BINAX NOW) 2023-02-22 16:50:00 Jordon Chatterjee [facility] POCT MOLECULAR STREP 2023-02-22 16:24:00 Unknown, Attvenice perkins [facility] GARDASIL 9 (HPV 9V) VACCINE 2023-02-10 14:15:24 Kate Mina [facility] POCT URINALYSIS 2022-06-09 15:38:00 Emilio Long [facility] "RWSP CONSUELO ONLY" FLU VACC([phone]), 6+ MONTHS, IM, QUAD (FLUZONE/FLULAVAL/FLUA GIUSEPPE) 2022-03-26 19:34:15 Vane Suh [facility] POCT URINALYSIS W/O SPECIFIC GRAVITY 2022-03-26 18:49:00 Vane Suh [facility] Encounters Start Date/Time End Date/Time Encounter Type Admission Type Attending [facility] Care Department Encounter ID Source 2023-12-03 16:48:03 2023-12-03 16:48:03 Outpatient [facility] [id number] Jeff Rolon 2023-12-03 00:00:00 2023-12-03 00:00:00 Outpatient Visit [facility] [id number] Jeff Frances Gonzales 2023-11-19 14:15:49 2023-11-19 14:15:49 Outpatient [facility] [id number] Jeff Rolon 2023-11-19 00:00:00 2023-11-19 00:00:[address] [facility] [id number] Jeff Rolon 2023-09-22 13:46:11 2023-09-22 13:46:[address] [facility] [id number] Jeff Rolon 2023-08-25 14:00:00 2023-08-25 14:15:00 Nurse Visit Nurse, Henrry Rmchp Rgv Cprit Obgyn Kate Mina [facility] CHARGE MASTER [facility] ..840.114 350.1.13.10 4.2.7.2.686 [id number] [facility] 2023-08-25 14:00:00 2023-08-25 13:56:19 Outpatient R KATE MINA [facility] [id number] [facility] 2023-04-04 00:00:00 2023-04-04 00:00:00 Outpatient R SADE KIMBROUGH [facility] [id number] [facility] 2023-04-04 00:00:00 2023-04-04 00:00:00 Telephone Kate Mina [facility] CHARGE MASTER [facility] ..840.114 350.1.13.10 4.2.7.2.686 [id number] [facility] 2023-04-02 09:30:00 2023-04-02 10:31:33 Outpatient R KATE MINA [facility] [id number] [facility] 2023-04-02 09:30:00 2023-04-02 10:31:33 Office Visit Kate Mina [facility] CHARGE MASTER [facility] ..840.114 350.1.13.10 4.2.7.2.686 [id number] [facility] 2023-03-17 14:15:00 2023-03-17 14:54:48 Outpatient R KATE MINA [facility] [id number] [facility] 2023-03-17 14:15:00 2023-03-17 14:54:48 Office Visit Kate Mina [facility] CHARGE MASTER [facility] 1.114 350.1.13.10 4.2.7.2.686 [id number] [facility] 2023-03-17 14:00:00 2023-03-17 14:15:00 Nurse Visit Nurse, Henrry Rmchp Rgv Cprit Obgyn Kate Mina [facility] CHARGE MASTER [facility] 1..114 350.1.13.10 4.2.7.2.686 [id number] [facility] 2023-02-26 10:30:00 2023-02-26 10:30:00 Outpatient R KATE MINA [facility] [id number] [facility] 2023-02-26 00:00:00 2023-02-26 00:00:00 Orders Only Doctor Unassigned, [place] [facility] 1..114 350.1.13.10 4.2.7.2.686 [id number] [facility] 2023-02-22 10:20:00 2023-02-22 11:57:35 Outpatient R JORDON CHATTERJEE [facility] [id number] [facility] 2023-02-22 10:20:00 2023-02-22 10:40:00 Urgent Care Jordon Chatterjee Unknown, Attending [facility] 1..114 350.1.13.10 4.2.7.2.686 [id number] [facility] 2023-02-22 00:00:00 2023-02-22 00:00:00 Letter (Out) Jordon Chatterjee [facility] 1..840.114 350.1.13.10 4.2.7.2.686 [id number] [facility] 2023-02-17 00:00:00 2023-02-17 00:00:00 [facility] 1..840.114 350.1.13.10 4.2.7.2.686 [id number] [facility] 2023-02-11 00:00:00 2023-02-11 00:00:00 Telephone Luis E [facility] CHARGE MASTER [facility] 1..840.114 350.1.13.10 4.2.7.2.686 [id number] [facility] 2023-02-10 08:30:00 2023-02-10 09:47:48 [id number] 2023-02-10 08:30:00 2023-02-10 09:47:48 Office Visit Provider, Ang-Rmchp Gilbert Kimbrough [facility] CHARGE MASTER [facility] ..840.114 350.1.13.10 4.2.7.2.686 [id number] [facility] 2023-02-10 08:30:00 2023-02-10 08:30:00 Outpatient R [facility] [id number] [facility] 2022-11-08 09:45:00 2022-11-08 09:45:00 Outpatient R MARVIN MARK [facility] [id number] [facility] 2022-11-08 08:15:00 2022-11-08 08:15:00 Outpatient R MARVIN MARK [facility] [id number] [facility] 2022-06-09 09:20:00 2022-06-09 10:00:54 Outpatient R WOJCIECH BRUMFIELD [facility] [id number] [facility] 2022-06-09 09:20:00 2022-06-09 09:40:00 Urgent Care Wojciech Brumfield B Unknown, Attending [facility] 1.84.114 350.1.13.10 4.2.7.2.686 [id number] [facility] 2022-04-02 00:00:00 2022-04-02 00:00:[address]h [facility] CHARGE MASTER [facility] 1.84.114 350.1.13.10 4.2.7.2.686 [id number] [facility] 2022-03-26 13:45:00 2022-03-26 14:12:47 Outpatient R VANE SUH EMILY [facility] [id number] [facility] 2022-03-26 13:45:00 2022-03-26 14:12:47 Office Visit Provider, Ang-Rmchp Vane White [facility] CHARGE MASTER [facility] 1..114 350.1.13.10 4.2.7.2.686 [id number] [facility] 2021-11-08 09:45:00 2021-11-08 10:46:08 Office Visit Marvin Mark [facility] CHARGE MASTER [facility] 1.84.114 350.1.13.10 4.2.7.2.686 [id number] [facility] 2021-11-08 09:45:00 2021-11-08 10:46:08 Outpatient MARVIN MORTENSEN [facility] [id number] [facility] 2021-11-08 09:45:00 2021-11-08 09:45:00 Outpatient MARVIN MORTENSEN [facility] [id number] [facility] 2021-11-08 00:00:00 2021-11-08 00:00:00 Orders Only Doctor Unassigned, [place] [facility] 1.840.114 350.1.13.10 4.2.7.2.686 [id number] [facility] 2021-05-25 15:00:00 2021-05-25 12:45:37 Outpatient CASTILLO MORLEY [facility] [id number] [facility] 2021-05-25 12:45:21 2021-05-25 12:45:37 Imm/Inj Visit Nurse, Adc Pob Immunizatio n Castillo Beckett [facility] 1.840.114 350.1.13.10 4.2.7.2.686 [id number] [facility] 2020-11-08 09:10:00 2020-11-08 08:25:26 Outpatient CASTILLO MORLEY [facility] [id number] [facility] 2020-11-08 08:00:00 2020-11-08 08:00:00 Outpatient CASTILLO MORLEY [facility] [id number] [facility] 2020-10-19 12:30:00 2020-10-19 12:30:00 Outpatient [facility] [id number] [facility] 2020-09-11 00:00:00 2020-09-11 00:00:00 Patient Outreach Castillo Beckett [facility] 1.840.114 350.1.13.10 4.2.7.2.686 [id number] [facility] Results Test Description Test Time Test Comments Results Result Co mments Source VAGINAL PATHOGENS DNA [id number] 00:00:00* Test Item Value Reference Range Interpretation Comme nts ANAMARIA SPECIES (test code = 50440) NEGATIVE G. VAGINALIS (test code = 20766) NEGATIVE T. VAGINALIS (test code = 10111) NEGATIVE Jeff Frances AustinVAGINAL PATHOGENS DNA [id number] 00:00:00* Test Item Value Reference Range Interpretation Comme nts ANAMARIA SPECIES (test code = 81211) NEGATIVE G. VAGINALIS (test code = 05415) NEGATIVE T. VAGINALIS (test code = 00310) NEGATIVE Jeff Stokes, [id number] 15:19:58SPECIMEN NUMBER: [id number] CULTURE, URINE SPECIMEN NUMBER: [id number] SOURCE: URINE REPORT STATUS: FINAL ISOLATE NUMBER 1: ORGANISM: 05/02/2023 >100,000 CFU/ML STREPTOCOCCUS AGALACTIAE (GROUP B) ADDITIONAL OBSERVATIONS: PENICILLIN AND AMPICILLIN ARE DRUGS OF CHOICE FOR TREATMENT OF B-HEMOLYTIC STREPTOCOCCAL INFECTIONS. SUSCEPTIBILITY TESTING OF PENICILLIN AND OTHER B-LACTAMS APPROVED BY THE USFOOD AND DRUG ADMINISTRATION FOR TREATMENT OF B-HEMOLYTIC STREPTOCOCCAL INFECTIONS NEED NOT BE PERFORMED ROUTINELY. PRELIMINARY URINE CULTURE: 04/30/2023 INSUFFICIENT GROWTH - FURTHER REPORTS TO FOLLOWCULTJAIDA, [id number] 00:00:00* Test Item Value Reference Range Interpretation Comme nts CULTURE, URINE (test code = 32207) SPECIMEN NUMBER: [id number] Jeff Stokes, [id number] 00:00:00* Test Item Value Reference Range Interpretation Comme nts CULTURE, URINE (test code = 10410) SPECIMEN NUMBER: [id number] Jeff Frances AustinVAGINAL PATHOGENS DNA [id number] 14:29:55* Test Item Value Reference Range Interpretation Comme nts ANAMARIA SPECIES (test code = ) NEGATIVE NEGATIVE G. VAGINALIS (test code = 68495) POSITIVE NEGATIVE A T. VAGINALIS (test code = 01849) NEGATIVE NEGATIVE Note: The [facility] ir VPIII Microbial Identification Testis a DNA probe test intended for use in the detectionand identification of Anamaria species, Gardnerellavaginalis and Trichomonas vaginalis nucleic acid. HERPES SIMPLEX AB, [id number] 13:05:42* Test Item Value Reference Range [facility]ation [facility]PLE[facility] AB, IgM (test code = 13952) 0.64 INDEX SEE BELOW INTERPRETATION U NITS RANGE ----- ----- NEGATIVE INDEX <=0.89 EQUIVOCAL INDEX 0.90-1.09 POSITIVE INDEX >=1.10 HIV 1/2 4TH GEN, RFLX [id number] 06:56:51* Test Item Value Reference Range Interpretation Comme [facility] HIV 1/2 4TH GEN, RFLX CONF ( test code = 3514) NON-REACTIVE NON-REACTIVE HEPATITIS PANEL, [id number] 06:56:51* Test Item Value Reference Range Interpretation [facility] HEPATITIS A IgM (test code = 94231) NON-REACTIVE NON-REACTIVE HEPATITIS B CORE IgM (test code = 4644) NON-REACTIVE NON-REACTIVE HEPATITIS B SURF AG (test code = 2739) NON-REACTIVE NON-REACTIVE HEPATITIS C ANTIBODY (test code = 4675) NON-REACTIVE NON-REACTIVE INTERPRETATION HEPATITIS A: (test code = 2552) (NOTE) Hepatitis A serology shows no evidence of acute hepatitis A. INTERPRETATION HEPATITIS B: (test code = 56928) (NOTE) Hepatitis B serology shows no evidence of acute hepatitis B andno indication of exposure to hepatitis B virus in the previous mary jane eight months. INTERPRETATION HEPATITIS C: (test code = 39702) (NOTE) Hepatitis C serology shows no evidence of exposure to hepatitisC virus at this time. It can take up to 12 months after exposure tothe hepatitis C virus for antibodies to become detectable in the blood in certain patients. HERPES SIMPLEX 1/2 AB, IgG [id number] 06:56:51* Test Item Value Reference Range [facility]ation [facility] HERPES SIMPLEX 1 AB, IgG (test code = 98797) 2.320 INDEX SEE BELOW H INTERPRETATION U NITS RANGE ----- ----- NON-REACTIVE INDEX <1.000 REACTIVE INDEX >=1.000 HERPES SIMPLEX 2 AB, IgG (test code = 01366) 59.800 INDEX SEE BELOW H INTERPRETATION U NITS RANGE ----- ----- NON-REACTIVE INDEX <1.000 REACTIVE INDEX >=1.000 UNLESS OTHERWISE INDICATED, ALL TESTING PERFORMED AT [facility] [address] [place] [address] TECHNICAL ADJUSTER: ANANTH GUTIERREZ M.D. [place] NUMBER [id number] [facility] [place]. [id number] 06:08:58* Test Item Value Reference Range Interpretation Comme nts RPR RESULT (test code = 3501) NON-REACTIVE NON-REACTIVE RPR TITER (test code = 3500) NOT INDIC. TITER NOT INDIC. VAGINAL PATHOGENS DNA [id number] 00:00:00* Test Item Value Reference Range Interpretation Comme nts ANAMARIA SPECIES (test code = 59127) NEGATIVE G. VAGINALIS (test code = 70629) POSITIVE T. VAGINALIS (test code = 86602) NEGATIVE Jeff RolonHIV 1/2 4TH GEN, RFLX [id number] 00:00:00* Test Item Value Reference Range Interpretation Comme nts HIV 1/2 4TH GEN, RFLX CONF ( test code = 3514) NON-REACTIVE Jeff RolnoACUTE HEPATITIS [id number] 00:00:00* Test Item Value Reference Range Interpretation Comme nts HEPATITIS A IgM (test code = 31854) NON-REACTIVE HEPATITIS B CORE IgM (test c ode = 4644) NON-REACTIVE HEPATITIS B SURF AG (test co de = 2739) NON-REACTIVE HEPATITIS C ANTIBODY (test c ode = 4675) NON-REACTIVE INTERPRETATION HEPATITIS A: (test code = 2552) (NOTE) INTERPRETATION HEPATITIS B: (test code = 31552) (NOTE) INTERPRETATION HEPATITIS C: (test code = 68803) (NOTE) Jeff [id number] 00:00:00* Test Item Value Reference Range Interpretation Comme nts RPR RESULT (test code = 3501) NON-REACTIVE RPR TITER (test code = 3500) NOT INDIC. TITER Jeff RolonHERPES SIMPLEX [id number] 00:00:00* Test Item Value Reference Range Interpretation Comme nts HERPES SIMPLEX AB, IgM (test code = 45580) 0.64 INDEX Jeff RolonHERPES SIMPLEX 1/2 [id number] 00:00:00* Test Item Value Reference Range Interpretation Comme nts HERPES SIMPLEX 1 AB, IgG (te st code = 97379) 2.320 INDEX HERPES SIMPLEX 2 AB, IgG (te st code = 08607) 59.800 INDEX Jeff RolonVAGINAL PATHOGENS DNA [id number] 00:00:00* Test Item Value Reference Range Interpretation Comme nts ANAMARIA SPECIES (test code = 40469) NEGATIVE G. VAGINALIS (test code = 56692) POSITIVE T. VAGINALIS (test code = 60631) NEGATIVE Jeff RolonHIV 1/2 4TH GEN, RFLX [id number] 00:00:00* Test Item Value Reference Range Interpretation Comme nts HIV 1/2 4TH GEN, RFLX CONF ( test code = 3514) NON-REACTIVE Jeff RolonACUTE HEPATITIS [id number] 00:00:00* Test Item Value Reference Range Interpretation Comme nts HEPATITIS A IgM (test code = 66196) NON-REACTIVE HEPATITIS B CORE IgM (test c ode = 4644) NON-REACTIVE HEPATITIS B SURF AG (test co de = 2739) NON-REACTIVE HEPATITIS C ANTIBODY (test c ode = 4675) NON-REACTIVE INTERPRETATION HEPATITIS A: (test code = 2552) (NOTE) INTERPRETATION HEPATITIS B: (test code = 47486) (NOTE) INTERPRETATION HEPATITIS C: (test code = 59480) (NOTE) Jeff [id number] 00:00:00* Test Item Value Reference Range Interpretation Comme nts RPR RESULT (test code = 3501) NON-REACTIVE RPR TITER (test code = 3500) NOT INDIC. TITER Jeff RolonHERPES SIMPLEX [id number] 00:00:00* Test Item Value Reference Range Interpretation Comme nts HERPES SIMPLEX AB, IgM (test code = 20661) 0.64 INDEX Jeff RolonHERPES SIMPLEX 1/2 [id number] 00:00:00* Test Item Value Reference Range Interpretation Comme nts HERPES SIMPLEX 1 AB, IgG (te st code = 76937) 2.320 INDEX HERPES SIMPLEX 2 AB, IgG (te st code = 97496) 59.800 INDEX Jeff RolonPOCT SARS-COV-2 ANTIGEN (BINAX NOW)2023-02-22 16:50:00* Test Item Value Reference Range Interpretation Comme nts POCT SARS-COV-2 ANTIGEN (test code = 54123-7) Not Detected Not Detected On board controls acceptable with C Line (test code = 3574) Yes JATINDER (test code = JATINDER) accurate developme nt and interpretation of all internal controls Lab Interpretation (test code = 37904-3) Normal [facility] MOLECULAR [id number] 16:32:53* Test Item Value Reference Range Interpretation Comme nts POCT Molecular Strep (test c ode = 79658-3) Negative Negative Lab Interpretation (test cod e = 13160-1) Normal [facility] URINALYSIS W SPECIFIC [id number] 15:38:00* Test Item Value Reference Range Interpretation Comme nts POCT U SP GRAV (test code = 3255) 1.010 mg/dl 1.005-1.025 POCT PH U (test code = 3254) 5.0 mg/dl 5-8 POCT U LEUK EST (test code = 3263) ++ Negative - Negative POCT U NIT (test code = 3262) Neg Negative - Negati ve POCT U PROT (test code = 3259) 30+ Negative - Negative POCT U GLU (test code = 3256) Neg Negative - Negati ve POCT U KETONE (test code = 3258) Neg Negative - Negative POCT U UROBILI (test code = 3260) Neg 0.2-1 POCT U BILI (test code = 3261) Neg Negative - Negative POCT U BLD (test code = 3257) Negative - Negati ve POCT U COLOR (test code = 3266) Yellow POCT U APPEAR (test code = 3267) Cloudy Lab Interpretation (test cod e = 29019-7) Abnormal [facility] URINALYSIS W/O SPECIFIC [id number] 18:49:00* Test Item Value Reference Range Interpretation Comme nts POCT PH U (test code = 3254) 5 mg/dl 5-8 POCT U LEUK EST (test code = 3263) negative Negative - Negative POCT U NIT (test code = 3262) negative Negative - Negati ve POCT U PROT (test code = 3259) trace Negative - Negat mine POCT U GLU (test code = 3256) negative Negative - Negati ve POCT U KETONE (test code = 3258) small Negative - Neg ative POCT U BLD (test code = 3257) negative Negative - Negati ve [facility] SPECIFIC [id number] 18:49:00* Test Item Value Reference Range Interpretation Comme nts POCT PH U (test code = 3254) 5 mg/dl 5-8 POCT U LEUK EST (test code = 3263) negative Negative - Negative POCT U NIT (test code = 3262) negative Negative - Negati ve POCT U PROT (test code = 3259) trace Negative - Negat mine POCT U GLU (test code = 3256) negative Negative - Negati ve POCT U KETONE (test code = 3258) small Negative - Neg ative POCT U BLD (test code = 3257) negative Negative - Negati ve [facility], [id number] 09:21:49SPECIMEN NUMBER: [id number] CULTURE, URINE SPECIMEN NUMBER: [id number] SOURCE: URINE REPORT STATUS: FINAL FINAL REPORT: 02/28/2022 50-100,000 CFU/ML UROGENITAL AL PRESENT NO COMMON PATHOGENSCULTURE, [id number] 00:00:00* Test Item Value Reference Range Interpretation Comme nts CULTURE, URINE (test code = 83459) SPECIMEN NUMBER: [id number] Jeff RodarteLTJAIDA, [id number] 00:00:00* Test Item Value Reference Range Interpretation Comme nts CULTURE, URINE (test code = 21804) SPECIMEN NUMBER: [id number] Jeff Frances AustinVAGINAL PATHOGENS DNA [id number] 14:34:11* Test Item Value Reference Range Interpretation Comme nts ANAMARIA SPECIES (test code = 14477) POSITIVE NEGATIVE A G. VAGINALIS (test code = 68925) NEGATIVE NEGATIVE T. VAGINALIS (test code = 20753) NEGATIVE NEGATIVE UNLESS OTHERWISE INDICATED, ALL TESTING PERFORMED [facility] [address] [place] [address] TECHNICAL ADJUSTER: JAILENE BOSE M.D. CLIA NUMBER [id number] [place]. [id number] VAGINAL PATHOGENS DNA [id number] 00:00:00* Test Item Value Reference Range Interpretation Comme nts ANAMARIA SPECIES (test code = ) POSITIVE G. VAGINALIS (test code = 77730) NEGATIVE T. VAGINALIS (test code = 95321) NEGATIVE Jeff RolonVAGINAL PATHOGENS DNA [id number] 00:00:00* Test Item Value Reference Range Interpretation Comme nts ANAMARIA SPECIES (test code = 45828) POSITIVE G. VAGINALIS (test code = 92488) NEGATIVE T. VAGINALIS (test code = 72239) NEGATIVE Jeff Rolon Notes Date/Time Note Provider Source Jeff Hernandez [facility]2024-05-29 00:00:00 Jfef Hernandez [facility]2023-08-28 16:40:08 Called patient, notified patient positive for yeast. Educated patient on medication, good perineal hygiene, and prevention measures. Pt verbalized understanding. GUILLERMO Ramos RN 02/17/2023 4:40 PM Guillermo Ramos [place] [id number] 16:30:37 Please notify patient of Fluconazole sent to pharmacy for Anamaria found on vag path thanks [place] [id number] 11:42:46 Called pt, discussed lab results. Pt verbalized understanding.. pt symptomatic for yeast infection,requesting treatment based on pathogen results from 02/10/2023. Advised will route to provider. Guillermo Ramos RN 02/14/23 11:43 AM [id number] 10:31:38 Attempted to call patient, no answer, left vm. [place] [id number] 10:00:06 Emilio Espinoza is a 37 year old female calling checking on 2 prescription from 02/10 appt goingto be sent to [facility] [place], [place] - [address] [facility] [address] . Please contact patient at [phone] [facility] [id number] 16:18:43 HSV 1 and HSV 2 noted during STI screening. Herpes is a very common life long viral infection that can cause painful bump that turns into even more painful ulcerations. There are also some who are asymptomatic and have no idea they have the virus. The virus is passed by skin to skin contact with an individual who is shedding the virus. You can shed the virus withouthaving symptoms. This means at some point in your life you have been exposed to the herpes virus. HSV is a commonly sexually transmitted viral infection characterized by incurable cutaneous or mucous membrane ulcerations that are often recurrent. Even when no signs of infection are obviously present, herpes can be spread to sexual partners through a process called viral shedding. Limit all oral contact (kissing, oral sex, sharing of food and drink) during prodrome (early symptoms) or outbreak. Consistent condom use recommended. Avoid skin to skin contact with lesions and frequent handwashing recommended. Expected course of HSV of primary lesions is 14-21 days, recurrent infections are approximately 7-10 days, Recurrence in 50% of patient within 6 months of primary infection. HSV-1 is traditionally above the waist and HSV-2 traditionally below the waist. It is not unusual to see the type of virus in other anatomical locations. Suppression and symptomatic treatment is available as needed. [facility]
[2024-05-03] MEDS ORDERED: ONDANSETRON 4 MG/2 ML VIAL ONE (14:52)
[2024-05-03] MEDS ORDERED: MORPHINE 4 MG/ML SYR ONE (14:52)
[2024-05-03] MEDS ORDERED: NA CHLORIDE 0.9% 1,000 ML ONE (14:52)
[2024-05-03 15:00] LABS: Specific Gravity 1.027 (1.005-1.030)
[2024-05-03 15:01] LABS: Specific Gravity 1.027 (1.005-1.030); Sqamous Epithelial <5 /HPF (None Seen); Urine Bacteria None Seen /HPF (<20); Urine Bilirubin NEGATIVE (Negative); Urine Blood Negative (Negative); Urine Clarity Turbid (Clear); Urine Color Light-Yellow (Yellow); Urine Culture Reflex Order NOT NEEDED; Urine Glucose NEGATIVE (Negative); Urine Ketones NEGATIVE (Negative); Urine Microscopic Reflex YN ORDER UMIC; Urine Mucus Slight /HPF (None Seen); Urine Nitrite NEGATIVE (Negative); Urine Protein TRACE (Negative); Urine RBC <5 /HPF (None Seen); Urine Urobilinogen Normal (Normal); Urine WBC <5 /HPF (<5); Urine Yeast (Budding) Trace /HPF (None Seen); Urine pH 6.5 (5.0-7.0)
[2024-05-03 15:03] LABS: Absolute Lymphocytes (CBC) 1.2 K/uL (0.7-4.9); Absolute Monocytes 0.6 K/uL (0.1-1.3); Absolute Neutrophil 6.3 K/uL (1.8-8.0); Basophils % 0.4 % (0-1.3); Eosinophils % 0.3 % (0-4.4); Hematocrit 28.4 % (36.0-45.0); Hemoglobin 8.6 g/dL (12.0-15.0); Lymphocytes % 14.5 % (15.3-44.8); MCH 21.7 pg (27.0-35.0); MCHC 30.5 g/dL (32.0-36.0); MCV 71.2 fL (80-100); MPV 8.3 fL (7.6-11.3); Monocytes % 6.9 % (3.3-12.3); Neutrophils % 77.9 % (41.7-73.7); Platelets 198 thou/uL (152-406); RBC Red Blood Cell Count 3.98 M/uL (3.86-4.86); Red Cell Distribution Width 17.9 % (12.1-15.2)
[2024-05-03 15:13] LABS: Albumin 3.7 g/dL (3.4-5.0); Albumin/Globulin Ratio 1.1 (1.1-1.8); Alkaline Phosphatase 37 U/L (45-117); Anion Gap 9.6 mEq/L (5.0-15.0); BUN Blood Urea Nitrogen 13 mg/dL (7-18); Bicarbonate 25 mEq/L (21-32); Bilirubin Total 0.3 mg/dL (0.2-1.0); Globulin 3.3 g/dL (2.3-3.5); Glomerular Filtration Rate 114 ml/min (=/>90); Glucose Level 112 mg/dL (74-106); Lipase 35 U/L (13-75); Potassium 3.6 mEq/L (3.5-5.1); Sodium Level 136 mEq/L (136-145)
[2024-05-03 15:14] LABS: ALT/SGPT < 14 U/L (13-56); AST/SGOT < 10 U/L (15-37)
--- NOTE | 2024-05-03 16:42 | RAD REPORT ---
EXAMINATION: CT Abdomen Pelvis W Contrast CLINICAL INDICATION: Female, 38 years old. ABD PAIN TECHNIQUE: CT abdomen and pelvis was performed, after the administration of IV contrast, as [facility]. Axial, sagittal and coronal reconstructions were obtained. One or more of the following dose reduction techniques were used: Automated exposure control, adjustment of the mA and k V according to patient size, and iterative reconstruction. Unless otherwise specified, incidental findings do not require dedicated imaging follow-up. COMPARISON: No prior exam. FINDINGS: LOWER CHEST: The visualized lung bases are clear. LIVER: Normal in size and contour. No focal lesion. BILIARY SYSTEM: No intra or extrahepatic biliary ductal dilation. Small calculi along the body of the gallbladder. SPLEEN: Normal size. No focal lesion. PANCREAS: No mass, ductal dilation, or austin-pancreatic fluid. ADRENALS: Normal; no mass. KIDNEYS: Normal size and contour. No hydronephrosis. Punctate calculi up to 2 mm within the right lena al calyces URINARY BLADDER: Unremarkable. GASTROINTESTINAL TRACT: No evidence of free air, significant intra-abdominal free fluid, bowel obstru ction or abscess. APPENDIX: Normal appendix. LYMPH NODES: No lymphadenopathy. MUSCULOSKELETAL: No acute or suspicious osseous abnormality. ADDITIONAL FINDINGS: Large posterior fundal fibroid measuring 7.5 cm. Other heterogeneously enhancing components along the anterior wall may represent smaller fibroids, not well evaluated. Dominant right adnexal 2.9 cm cyst/follicle. IMPRESSION: Cholelithiasis. Nonobstructing tiny right renal calculi up to 2 mm. Fibroid uterus.
[2024-05-03] MEDS ORDERED: HYDROCODONE/APAP 5/325 MG TAB ONE (17:06)
--- NOTE | 2024-05-03 17:54 | ER ---
Nurse's Notes [facility] Name: Tori Espinoza Age: 38 yrs Sex: Female : 1985 Arrival Date: 05/03/2024 Time: 12:43 Bed 15 Private MD: Diagnosis: Disease of biliary tract, unspecified;Other cholelithiasis without obstruction Presentation: 05/03 13:32 Chief complaint: Patient states: upper abd pain that began suddenly this morning. ss Denies N/V/D. Coronavirus screen: Client denies travel out of the [place] in the last 14 days. Ebola Screen: Patient denies exposure to infectious person. Patient denies travel to an Ebola-affected area in the 21 days before illness onset. Initial Sepsis Screen: Does the patient meet any 2 criteria? No. Patient's initial sepsis screen is negative. Does the patient have a suspected source of infection? No. Patient's initial sepsis screen is negative. Risk Assessment: Do you want to hurt yourself or someone else? Patient reports no desire to harm self or others. Onset of symptoms was May 03, 2024. 13:32 Method Of Arrival: Ambulatory ss 13:32 Acuity: RICHARD 3 ss Historical: - Allergies: 13:33 No Known Allergies; ss - Home Meds: 13:33 None [Active]; ss - PMHx: 13:33 None; ss - PSHx: 13:33 None; ss - Immunization history:: Adult Immunizations. - Infectious Disease History:: Denies. - Social history:: Smoking status: Patient denies any tobacco usage or history of. Screenin:30 [facility] ED Fall Risk Assessment (Adult) History of falling in the last 3 months, rs5 including since admission No falls in past 3 months (0 pts) Confusion or Disorientation No (0 pts) Intoxicated or Sedated No (0 pts) Impaired Gait No (0 pts) Mobility Assist Device Used No (0 pt) Altered Elimination No (0 pt) Score/Fall Risk Level 0 - 2 = Low Risk Oriented to surroundings, Maintained a safe environment. Abuse screen: Denies threats or abuse. Nutritional screening: No deficits noted. Tuberculosis screening: No symptoms or risk factors identified. Assessment: 14:33 Reassessment: Patient and/or family updated on plan of care and expected duration. Pain ll1 level reassessed. 14:37 Reassessment: pt arrived in room . rs5 14:40 General: Appears in no apparent distress. uncomfortable, Behavior is calm, cooperative. rs5 Pain: Complains of pain in abdomen Pain currently is 8 out of 10 on a pain scale. Quality of pain is described as aching, Is continuous. Neuro: Level of Consciousness is awake, alert, obeys commands, Oriented to person, place, time, situation. Cardiovascular: Patient's skin is warm and dry. Respiratory: Airway is patent Respiratory effort is even, unlabored, Respiratory pattern is regular, symmetrical. GI: Abdomen is round non-distended, Bowel sounds present X 4 quads. Abd is soft and non tender X 4 quads. Reports nausea. : No signs and/or symptoms were reported regarding the genitourinary system. EENT: No signs and/or symptoms were reported regarding the EENT system. Derm: Skin is intact, Skin is pink, warm \T\ dry. Musculoskeletal: Range of motion: intact in all extremities. 15:44 Reassessment: Patient and/or family updated on plan of care and expected duration. Pain rs5 level reassessed. Patient is alert, oriented x 3, equal unlabored respirations, skin warm/dry/pink. Vital Signs: 13:32 BP 127 / 88; Pulse 57; Resp 16; Temp 98(O); Pulse Ox 100% on R/A; Weight 78.02 kg; ss Height 5 ft. 11 in. ; Pain 8/10; 15:44 BP 122 / 81; Pulse 62; Resp 17; Pulse Ox 99% on R/A; rs5 13:32 Body Mass Index 23.99 (78.02 kg, 180.34 cm) 13:32 Pain Scale: Adult ss ED Course: 12:44 Patient arrived in ED. mr 12:47 Carole Aguilar MD is Attending Physician. gb1 13:30 Patient has correct armband on for positive identification. Placed in gown. Bed in low rs5 position. Call light in reach. Side rails up X2. 13:30 Assist provider with bone marrow aspiration. rs5 13:32 Inserted saline lock: 22 gauge in right antecubital area, using aseptic technique. rs5 Blood collected. Flushed with 10 mL NS. 13:33 Triage completed. ss 13:33 Arm band placed on right wrist. ss 14:33 Patient placed in an exam room, on a stretcher. ll1 14:36 Damon Murry, RN is Primary Nurse. rs5 15:31 CT Abd/Pelvis - IV Contrast Only In Process Unspecified. EDTX 17:52 Guanaco Flores MD is Referral Physician. gb1 18:01 Provided Education on: discharge instructions . rs5 18:10 IV discontinued, intact, bleeding controlled, No redness/swelling at site. Pressure rs5 dressing applied. Administered Medications: 14:30 Drug: morphine IVP or IV 4 mg IVP once over 4 mins Route: IVP; Infused Over: 4 mins; rs5 Site: right antecubital; 15:01 Follow up: Response: No adverse reaction rs5 14:30 Drug: Ondansetron IVP 4 mg IVP once; over 2 minutes Route: IVP; Site: right antecubital;rs5 15:01 Follow up: Response: No adverse reaction rs5 14:30 Drug: NS 0.9% IV 1000 ml IV at 1000 ml once; to be given as a bolus over 60 minutes rs5 Route: IV; Rate: 1000 ml; Site: right antecubital; 15:25 Follow up: Response: No adverse reaction; IV Status: Completed infusion; IV Intake: rs5 1000ml 17:15 Drug: HYDROcodone-acetaminophen PO 5 mg-325 mg 1 tabs PO once Route: PO; rs5 Medication: 15:45 VIS not applicable for this client. rs5 Intake: 15:25 IV: 1000ml; Total: 1000ml. rs5 Outcome: 17:53 Discharge ordered by . gb1 18:10 Discharged to home ambulatory, rs5 18:10 Condition: stable rs5 18:10 Discharge instructions given to patient, family, Instructed on discharge instructions, follow up and referral plans. Demonstrated understanding of instructions, follow-up care, 18:14 Patient left the ED. rs5 Signatures: Dispatcher [employer] EDTX DennisBarb, Aries Reg mr PayanDuyen, RN RN ss Marlee Rain RN RN ll1 Damon Murry, RN RN rs5 Carole Aguilar MD MD gb1 Corrections: (The following items were deleted from the chart) 18:58 18:40 Provided Education on: discharge instructions . rs5 rs5
--- NOTE | 2024-05-03 17:54 | EDPHYS ---
Physician Documentation [facility] Name: Tori Espinoza Age: 38 yrs Sex: Female : 1985 Arrival Date: 05/03/2024 Time: 12:43 Bed 15 Private MD: ED Physician Carole Aguilar HPI: 05/03 14:03 This 38 yrs old Female presents to ER via Ambulatory with complaints of gb1 Abdominal Pain. 14:03 Old with upper epigastric abdominal pain started after eating an egg gb1 this morning. Patient did drink alcohol heavily yesterday strings 4-5 times per week. She is also a smoker. She denies any diarrhea or fever chills. Patient has never had this pain before she rates the pain 7-8 out of 10.. Historical: - Allergies: 13:33 No Known Allergies; ss - Home Meds: 13:33 None [Active]; ss - PMHx: 13:33 None; ss - PSHx: 13:33 None; ss - Immunization history:: Adult Immunizations. - Infectious Disease History:: Denies. - Social history:: Smoking status: Patient denies any tobacco usage or history of. Exam: 14:03 Constitutional: This is a well developed, well nourished patient who is awake, alert, gb1 and in no acute distress. Head/Face: Normocephalic, atraumatic. Eyes: Pupils equal round and reactive to light, extra-ocular motions intact. Lids and lashes normal. Conjunctiva and sclera are non-icteric and not injected. Cornea within normal limits. Periorbital areas with no swelling, redness, or edema. ENT: Nares patent. No nasal discharge, no septal abnormalities noted. Tympanic membranes are normal and external auditory canals are clear. Oropharynx with no redness, swelling, or masses, exudates, or evidence of obstruction, uvula midline. Mucous membranes moist. Neck: Trachea midline, no thyromegaly or masses palpated, and no cervical lymphadenopathy. Supple, full range of motion without nuchal rigidity, or vertebral point tenderness. No Meningismus. Chest/axilla: Normal chest wall appearance and motion. Nontender with no deformity. No lesions are appreciated. Cardiovascular: Regular rate and rhythm with a normal S1 and S2. No gallops, murmurs, or rubs. Normal PMI, no JVD. No pulse deficits. Respiratory: Lungs have equal breath sounds bilaterally, clear to auscultation and percussion. No rales, rhonchi or wheezes noted. No increased work of breathing, no retractions or nasal flaring. Abdomen/GI: Soft, non-tender, with normal bowel sounds. No distension or tympany. No guarding or rebound. + Midepigastric tenderness with light palpation as well as right upper quadrant tenderness. No rebound or guarding. Back: No spinal tenderness. No costovertebral tenderness. Full range of motion. Skin: Warm, dry with normal turgor. Normal color with no rashes, no lesions, and no evidence of cellulitis. MS/ Extremity: Pulses equal, no cyanosis. Neurovascular intact. Full, normal range of motion. Vital Signs: 13:32 BP 127 / 88; Pulse 57; Resp 16; Temp 98(O); Pulse Ox 100% on R/A; Weight 78.02 kg; ss Height 5 ft. 11 in. ; Pain 8/10; 15:44 BP 122 / 81; Pulse 62; Resp 17; Pulse Ox 99% on R/A; rs5 13:32 Body Mass Index 23.99 (78.02 kg, 180.34 cm) ss 13:32 Pain Scale: Adult ss MDM: 13:29 Medical Screening Exam initiated gb1 14:03 Data reviewed: vital signs, nurses notes. gb1 17:55 ED course: 38-year-old female with gastric pain after eating a fatty meal is found to gb1 have acute biliary colic, calculus. No signs of obstructive biliary disease, doubt choledocholithiasis, acute cholecystitis or gallstone pancreatitis. Patient is been discharged home to follow-up with Dr. Radha jackson for a HIDA scan and likely scheduled outpatient cholecystectomy. She is compliant with her recommendations for gallbladder disease diet to decrease fatty foods and her is at the bedside of discharge to home with Bentyl and return precautions for follow-up. She is p.o. tolerant prior to discharge home today and compliant with discharge instructions.. 05/03 12:49 Order name: CBC with Diff gb1 05/03 12:49 Order name: CMP; Complete Time: 15:17 gb1 05/03 12:49 Order name: Lipase; Complete Time: 15:17 gb1 05/03 12:49 Order name: Test, Urine; Complete Time: 15:17 gb1 05/03 12:49 Order name: Urinalysis w/ reflexes; Complete Time: 15:17 gb1 05/03 18:12 Order name: CBC Smear Scan EDIL 05/03 15:18 Order name: CT Abd/Pelvis - IV Contrast Only; Complete Time: 16:48 gb1 05/03 12:49 Order name: IV Saline Lock; Complete Time: 15:22 gb1 05/03 12:49 Order name: Labs collected and sent; Complete Time: 15:22 gb1 Administered Medications: 14:30 Drug: morphine IVP or IV 4 mg IVP once over 4 mins Route: IVP; Infused Over: 4 mins; rs5 Site: right antecubital; 15:01 Follow up: Response: No adverse reaction rs5 14:30 Drug: Ondansetron IVP 4 mg IVP once; over 2 minutes Route: IVP; Site: right antecubital;rs5 15:01 Follow up: Response: No adverse reaction rs5 14:30 Drug: NS 0.9% IV 1000 ml IV at 1000 ml once; to be given as a bolus over 60 minutes rs5 Route: IV; Rate: 1000 ml; Site: right antecubital; 15:25 Follow up: Response: No adverse reaction; IV Status: Completed infusion; IV Intake: rs5 1000ml 17:15 Drug: HYDROcodone-acetaminophen PO 5 mg-325 mg 1 tabs PO once Route: PO; rs5 Disposition Summary: 05/03/24 17:53 Discharge Ordered Notes: Location: Home gb1 Problem: new gb1 Symptoms: have improved gb1 Condition: Stable gb1 Diagnosis - Disease of biliary tract, unspecified gb1 - Other cholelithiasis without obstruction gb1 Followup: gb1 - With: Guanaco Flores MD - When: - Reason: Further diagnostic work-up Discharge Instructions: - Discharge Summary Sheet gb1 - Cholelithiasis gb1 - Gallbladder Nuclear Scan gb1 Forms: - Work release form gb1 - Medication Reconciliation Form gb1 - Antibiotic Education gb1 - Prescription Opioid Use gb1 - Patient Portal Instructions gb1 - Leadership Thank You Letter gb1 Prescriptions: - dicyclomine 10 mg Oral capsule - take 1 capsule ORAL route 3 times per day; 30 capsule; Refills: 0, Product gb1 Selection Permitted Signatures: Dispatcher [employer] EDMS Duyen Payan, DENILSON RN ss Damon Murry RN RN rs5 Carole Aguilar MD MD gb1 Corrections: (The following items were deleted from the chart) 12:49 12:49 CBC+H.LAB.BRZ ordered. EDMS EDMS 12:49 12:49 COMPREHENSIVE METABOLIC PANEL+C.LAB.BRZ ordered. EDMS EDMS 12:49 12:49 LIPASE+C.LAB.BRZ ordered. EDMS EDMS 12:49 12:49 Test, Urine+UC.LAB.BRZ ordered. EDMS EDMS 12:49 12:49 Urinalysis+U.LAB.BRZ ordered. EDMS EDMS
[2024-05-03 18:11] LABS: Anisocytosis SLIGHT; Blood Morphology Comment NOTED (NOT SEEN); Platelet Estimate ADEQ; White Blood Cell Scan OK (OK)
[2024-05-03 18:12] LABS: Hypochromasia 1+; Polychromasia SLIGHT
[2024-05-03 18:23] VITALS: TEMP 98
[2024-05-03 18:24] VITALS: BP 122/81; O2SAT 99
== END 2024-05-03 18:14 | disposition home or self-care (01) ==
LOC: ER 12:43
DX: K80.80 Other cholelithiasis without obstruction (principal); K83.9 Disease of biliary tract, unspecified
CPT/HCPCS: 36415; 74177; 80053; 81001; 81025; 83690; 85025; 96361; 96374; 96375; 99285; J2405; J7030; Q9967